=== PATIENT | female | born 2000 | race American Indian/Alaskan Native ===

== ENCOUNTER 2019-01-04 14:03 | Outpatient (CLI) | payer BC ==
--- NOTE | 2019-01-04 15:07 | Ultrasound Report ---
RIGHT BREAST ULTRASOUND HISTORY: 18-year-old with a palpable right breast mass. COMPARISON: None. FINDINGS: Sonographic evaluation focused upon the upper outer location of the right breast demonstrat es an oval solid heterogeneous hypoechoic mass at 11:30 o'clock 4 cm from the nipple. It measures 2.0 x 1.4 x 2.3 cm and correlates with the palpable lump. IMPRESSION: A probably benign 2.3 cm right breast mass at 11:30 o'clock 4 cm from the nipple. Ultrasound morpholo gy suggests benign fibroadenoma. Recommend 6 month follow-up right breast ultrasound to reevaluate th e size and to assess for growth over time. BIRADS 3: Probably benign. Signer Name: Misha Lee MD Signed: 01/04/2019 3:03 PM Workstation Name: [id number]
== END 2019-01-04 14:04 | disposition home or self-care (01) ==
LOC: SPVWC 14:03
PROVIDERS: ATTEND Obstetrics & Gynecology
DX: N63.11 Unspecified lump in the right breast, upper outer quadrant (principal)

== ENCOUNTER 2021-01-23 22:28 | Emergency (ER) | payer BC, OTHER ==
[2021-01-23 23:34] VITALS: BP 114/80
--- NOTE | 2021-01-23 23:58 | Emergency Department Report ---
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 Patient states that the pain has been constant and persistent and especially worse with movement or any active range of motion. Patient states that she took ibuprofen 800 mg p.o. x1 and also tizanidine 4 mg p.o. x1 prior to arrival in the ED. Patient denies fall, traumatic injury, numbness and tingling or we akness of lower extremities bilaterally, urinary retention, bowel incontinence, saddle paresthesia, abdominal pain, fever, chills, chest pain or shortness of breath and neck pain and headache MD Complaint: back pain (LOWER BACK PAIN) -: Sudden, hour(s) (>12 hours), This morning Time: 10:00 Similar Symptoms Previously: No Place: work Radiation: none Severity: severe Severity scale (0 -10): 7 Quality: sharp, aching Consistency: constant Improves With: none Worsens With: movement, supine, sitting upright, walking Context: while lifting, turning/twisting, bending Associated Symptoms: denies other symptoms. denies: confusion, weakness, chest pain, numbness, difficulty walking, cough, difficulty urinating, incontinence, fever/chills, constipation, headaches, abdominal pain, loss of appetite, malaise, nausea/vomiting, rash, seizure, shortness of breath, syncope, other Treatments Prior to Arrival: NSAIDS, prescription analgesics (Tizanidine) - Related Data Allergies Allergy/AdvReac Type Severity Reaction Status Date / Time No Known Allergies Allergy Unverified 01/23/21 23:41 ED Review of Systems ROS: Stated complaint: BACK INJURY Other details as noted in HPI Constitutional: denies: chills, fever Eyes: denies: eye pain, eye discharge, vision change ENT: denies: ear pain, throat pain Respiratory: denies: cough, shortness of breath, wheezing Cardiovascular: denies: chest pain, palpitations Endocrine: no symptoms reported Gastrointestinal: denies: abdominal pain, nausea, diarrhea Genitourinary: denies: urgency, dysuria, discharge Musculoskeletal: back pain (lower back pain). denies: joint swelling, arthralgia Skin: denies: rash, lesions Neurological: denies: headache, weakness, paresthesias Psychiatric: denies: anxiety, depression Hematological/Lymphatic: denies: easy bleeding, easy bruising ED Past Medical Hx - Past Medical History Previous Medical History?: Yes Hx Diabetes: Yes - Surgical History Past Surgical History?: No - Social History Smoking Status: Never Smoker Substance Use Type: None ED Physical Exam - General Limitations: No Limitations General appearance: alert, in no apparent distress - Head Head exam: Present: atraumatic, normocephalic, normal inspection - Eye Eye exam: Present: normal appearance, PERRL, EOMI Pupils: Present: normal accommodation - ENT ENT exam: Present: normal exam, normal orophraynx, mucous membranes moist, TM's normal bilaterally, normal external ear exam - Neck Neck exam: Present: normal inspection, full ROM - Respiratory Respiratory exam: Present: normal lung sounds bilaterally. Absent: respiratory distress, wheezes, rhonchi, stridor, chest wall tenderness, accessory muscle use, decreased breath sounds, prolonged expiratory - Cardiovascular Cardiovascular Exam: Present: regular rate, normal rhythm, normal heart sounds. Absent: systolic murmur, diastolic murmur, rubs, gallop - GI/Abdominal GI/Abdominal exam: Present: soft, normal bowel sounds. Absent: tenderness, guarding, rigid, hyperactive bowel sounds, hypoactive bowel sounds, organomegaly - Extremities Exam Extremities exam: Present: normal inspection, full ROM, normal capillary refill. Absent: tenderness - Back Exam Back exam: Present: normal inspection, full ROM, tenderness (Palpable lumbosacral paraspinal musculoskeletal tenderness), muscle spasm, paraspinal tenderness. Absent: CVA tenderness (R), CVA tenderness (L), vertebral tenderness, rash noted - Neurological Exam Neurological exam: Present: alert, oriented X3, CN II-XII intact, normal gait, reflexes normal - Psychiatric Psychiatric exam: Present: normal affect, normal mood - Skin Skin exam: Present: warm, dry, intact, normal color. 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 Patient states that the pain has been constant and persistent and especially worse with movement or any active range of motion. Patient states that she took ibuprofen 800 mg p.o. x1 and also tizanidine 4 mg p.o. x1 prior to arrival in the ED. In the ED, patient is alert and oriented x3 and is not in any distress. Patient took pain medications and muscle relaxants prior to arrival in the ED. Patient was advised to continue taking the previously prescribed medications of ibuprofen 800 mg as needed for pain as well as muscle relaxants tizanidine 4 mg as needed for muscle spasm of her back. Patient was advised to follow-up with her primary care physician in 5 to 7 days for reevaluation or return to the ED immediately if her symptoms get worse. - Differential Diagnosis muscle spasm; muscle strain; back injury Critical care attestation.: If time is entered above; I have spent that time in minutes in the direct care of this critically ill patient, excluding procedure time. ED Disposition Clinical Impression: Spasm of muscle of lower back, Strain of muscle, fascia and tendon of lower back, initial encounter Acute low back pain without sciatica Qualifiers: Back pain laterality: right Qualified Code(s): M54.50 - Low back pain, unspecified Disposition: 01 HOME / SELF CARE / HOMELESS Is pt being admited?: No Does the pt Need Aspirin: No Condition: Stable Instructions: Muscle Cramps and Spasms, [id number], Muscle Strain, Easy-to-R ead, Low Back Sprain or Strain Rehab-SportsMed, Back Injury Prevention, [id number] Additional Instructions: Your injuries are likely musculoskeletal. Therefore take the previously prescribed medication for pain as needed with food, take muscle relaxants as advised and follow-up with your primary care physician in 7 to 10 days for reevaluation. Return to the ED immediately if your symptoms get worse. Referrals: [facility] [Provider Group] - 7-10 days Forms: Work/School Release Form(ED) Time of Disposition: 23:59 Print Language: WOLOF
== END 2021-01-24 01:17 | disposition home or self-care (01) ==
LOC: ED 22:28
DX: S39.012A Strain of muscle, fascia and tendon of lower back, initial encounter (principal); E11.8 Type 2 diabetes mellitus with unspecified complications; X58.XXXA Exposure to other specified factors, initial encounter; Y93.89 Activity, other specified; Y92.89 Other specified places as the place of occurrence of the external cause; Y99.8 Other external cause status
CPT/HCPCS: 99282